=== PATIENT | female | born 1950 | race Hispanic/Latino ===

== ENCOUNTER → 2024-02-10 | Outpatient (REF) | payer MEDICARE | LOC: MAMMO 09:16 | PROVIDERS: ATTEND Internal Medicine | DX: Z12.31 Encounter for screening mammogram for malignant neoplasm of breast (principal); Z13.820 Encounter for screening for osteoporosis; N95.9 Unspecified menopausal and perimenopausal disorder | CPT/HCPCS: 77067; 77080 ==